=== PATIENT | male | born 1965 | race American Indian/Alaskan Native ===

== ENCOUNTER 2017-11-08 15:14 | Inpatient (IN) | payer SELFPAY ==
[2017-11-08 16:08] LABS: Hematocrit 47.2 % (35.5-45.6); Hemoglobin 15.6 gm/dl (11.8-15.2); Mean Corpuscular HGB Conc 33 % (32-34); Mean Corpuscular Hemoglobin 30 pg (28-32); Mean Corpuscular Volume 92 fl (84-94); Platelet Count 266 K/mm3 (140-440); Red Blood Count 5.15 M/mm3 (3.65-5.03); Red Cell Distribution Width 13.6 % (13.2-15.2); White Blood Count 6.8 K/mm3 (4.5-11.0)
[2017-11-08 16:14] LABS: Anion Gap 19 mmol/L; BUN/Creatinine Ratio 10; Blood Urea Nitrogen 14 mg/dL (9-20); Calcium 9.1 mg/dL (8.4-10.2); Carbon Dioxide 26 mmol/L (22-30); Chloride 99.5 mmol/L (98-107); Glucose 93 mg/dL (75-100); Potassium 4.2 mmol/L (3.6-5.0); Sodium 140 mmol/L (137-145)
[2017-11-08] MEDS ORDERED: SUBLIMAZE IV ONE (17:00)
[2017-11-08] MEDS: NITROSTAT SL PRN (17:07)
[2017-11-08 18:07] LABS: Basophils % (Manual) 0 % (0.0-1.8); Blastocytes % (Manual) 0 %
[2017-11-08 18:08] LABS: Anisocytosis 1+; Diff Status Complete; Large Platelets Few; Platelet Estimate Cons
--- NOTE | 2017-11-08 21:21 | Emergency Department Report ---
ED Chest Pain HPI - General Chief Complaint: Chest Pain Stated Complaint: CHEST PAIN Time Seen by Provider: 11/08/17 20:13 Source: patient Mode of arrival: Ambulatory Limitations: No Limitations - History of Present Illness Initial Comments: 52 yo female with a past medical history of elevated cholesterol and CAD with stent placement presents to the Hospital complains of chest pain. Patient states he typically has cp 1-2 days. Today he was having chest pain every 5 minutes. Pain is substernal, burning, squeezing, and aching in nature. Mild shortness of breath associated with symptoms. Denies nausea, vomiting, or diaphoresis. Patient has been compliance with with this medication. A Cardiac stent was placed 2.5 years ago with last cardiac catheterization. Patient reports having a stress test 1.5 years ago. Patient does not have a transmission worker. Severity scale (0 -10): 2 - Related Data Home Medications Medication Instructions Recorded Confirmed Last Taken Atenolol [Tenormin] 25 mg PO DAILY 11/08/17 11/08/17 Unknown ISOSORBIDE MONOnitrate [Imdur ER] 300 mg PO QDAY 11/08/17 11/08/17 Unknown Lovastatin [Altoprev] 20 mg PO QDAY 11/08/17 11/08/17 Unknown Nitroglycerin [Nitrostat] 0.4 mg SL Q5M PRN 11/08/17 11/08/17 Unknown Allergies Allergy/AdvReac Type Severity Reaction Status Date / Time No Known Allergies Allergy Unverified 11/08/17 15:19 Heart Score - HEART Score History: Moderately suspicious EKG: Non-specific Age: 45-65 Risk factors: > 3 risk factors or hx of atherosclerotic disease Troponin: < normal limit HEART Score: 5 ED Review of Systems ROS: Stated complaint: CHEST PAIN Other details as noted in HPI Comment: All other systems reviewed and negative Other: Constitutional: No fevers chills Eyes: No eye pain visual changes ENT: No ear pain or throat pain Neck: Denies pain Respiratory: Denies cough wheezing shortness of breath Cardiovascular: as per hpi GI: Denies abdominal pain, nausea, vomiting, diarrhea : Denies dysuria Musculoskeletal: Denies back pain Skin: Denies rash, lesions, erythema Neurologic: Denies headache, numbness, weakness Psychiatric: Denies suicidal ideation, hallucinations ED Past Medical Hx - Past Medical History Previous Medical History?: Yes Hx Heart Attack/AMI: Yes - Surgical History Hx Coronary Stent: Yes - Social History Smoking Status: Current Some Day Smoker Substance Use Type: Alcohol - Medications Home Medications: Home Medications Medication Instructions Recorded Confirmed Last Taken Type Atenolol [Tenormin] 25 mg PO DAILY 11/08/17 11/08/17 Unknown History ISOSORBIDE MONOnitrate [Imdur ER] 300 mg PO QDAY 11/08/17 11/08/17 Unknown History Lovastatin [Altoprev] 20 mg PO QDAY 11/08/17 11/08/17 Unknown History Nitroglycerin [Nitrostat] 0.4 mg SL Q5M PRN 11/08/17 11/08/17 Unknown History ED Physical Exam - General Limitations: No Limitations - Other Other exam information: General: No limitations, patient is alert in no acute distress Head exam: Atraumatic, normocephalic Eyes exam: Normal appearance, ENT: Moist mucous membrane, normal oropharynx Neck exam: Normal inspection, full range of motion, no meningismus nontender Respiratory exam: Clear to auscultation bilateral, no wheezes, rales, crackles Cardiovascular: Normal rate and rhythm, normal heart sounds, chest wall nontender Abdomen: Soft, nondistended, and nontender, with normal bowel sounds, no rebound, or guarding Extremity: Full range of motion normal inspection no deformity Back: Normal Inspection, full range of motion, no tenderness Neurologic: Alert, oriented x3, cranial nerves intact, no motor or sensory deficit Psychiatric: normal affect, normal mood Skin: Warm, dry, intact ED Course Vital Signs 11/08/17 11/08/17 11/08/17 15:19 16:22 16:30 Temperature 97.6 F Pulse Rate 50 L 68 67 Respiratory 20 18 15 Rate Blood Pressure 132/57 O2 Sat by Pulse 100 97 97 Oximetry 11/08/17 11/08/17 11/08/17 16:46 17:00 17:07 Temperature Pulse Rate 67 69 60 Respiratory 14 16 Rate Blood Pressure 115/47 O2 Sat by Pulse 96 97 Oximetry 11/08/17 11/08/17 11/08/17 17:16 17:28 17:30 Temperature Pulse Rate 54 L 52 L Respiratory 17 16 13 Rate Blood Pressure 115/47 107/56 O2 Sat by Pulse 96 97 Oximetry 1211/08/17 11/08/17 17:45 18:00 18:16 Temperature Pulse Rate 57 L 59 L 59 L Respiratory 15 12 15 Rate Blood Pressure 111/62 111/62 121/63 O2 Sat by Pulse 94 96 97 Oximetry 11/08/17 11/08/17 11/08/17 18:30 18:45 19:00 Temperature Pulse Rate Respiratory Rate Blood Pressure 154/66 169/67 169/67 O2 Sat by Pulse 97 98 98 Oximetry 11/08/17 11/08/17 11/08/17 19:16 19:30 19:46 Temperature Pulse Rate 57 L 54 L 62 Respiratory 14 13 17 Rate Blood Pressure 130/73 107/53 109/67 O2 Sat by Pulse 94 97 Oximetry 11/08/17 11/08/17 11/08/17 20:00 20:15 20:30 Temperature Pulse Rate 61 53 L Respiratory 15 13 15 Rate Blood Pressure 109/67 104/76 99/71 O2 Sat by Pulse 95 95 95 Oximetry 11/08/17 11/08/17 11/08/17 20:45 21:00 21:15 Temperature Pulse Rate 58 L 59 L 62 Respiratory 16 15 13 Rate Blood Pressure 99/71 107/46 107/46 O2 Sat by Pulse 94 93 98 Oximetry 11/08/17 11/08/17 21:31 21:45 Temperature Pulse Rate 63 64 Respiratory 12 24 Rate Blood Pressure 107/46 126/69 O2 Sat by Pulse 93 97 Oximetry - Reevaluation(s) Reevaluation #1: 11/09/17 pt stable in ed - Consultations Consultation #1: 11/09/17 00:32 ekg's reviwed by stemi seasonal tax preparer doctor, no stemi, trop neg x 4, rec stress test, not cath candiate at this time ELIAS score - Elias Score Age > 65: (0) No Aspirin use within the Past 7 Days: (0) No 3 or more CAD Risk Factors: (1) Yes 2 or more Angina events in past 24 hrs: (1) Yes Known CAD with more than 50% Stenosis: (1) Yes Elevated Cardiac Markers: (0) No ST Deviation Greater than 0.5mm: (0) No ELIAS Score: 3 ED Medical Decision Making - Lab Data Result diagrams: 11/08/17 15:32 11/08/17 15:32 Lab Results 11/08/17 11/08/17 11/08/17 Range/Units 15:32 15:32 18:24 WBC 6.8 (4.5-11.0) K/mm3 RBC 5.15 H (3.65-5.03) M/mm3 Hgb 15.6 H (11.8-15.2) gm/dl Hct 47.2 H (35.5-45.6) % MCV 92 (84-94) fl MCH 30 (28-32) pg MCHC 33 (32-34) % RDW 13.6 (13.2-15.2) % Plt Count 266 (140-440) K/mm3 [place] % (Auto) Quality Technician Fiberglass Add Manual Diff Complete Total Counted 100 Seg Neuts % (Manual) 53.0 (40.0-70.0) % Band Neutrophils % 0 % Lymphocytes % (Manual) 28.0 (13.4-35.0) % Reactive Lymphs % (Man) 0 % Monocytes % (Manual) 17.0 H (0.0-7.3) % Eosinophils % (Manual) 2.0 (0.0-4.3) % Basophils % (Manual) 0 (0.0-1.8) % Metamyelocytes % 0 % Myelocytes % 0 % Promyelocytes % 0 % Blast Cells % 0 % Nucleated RBC % Not Reportable Seg Neutrophils # Man 3.6 (1.8-7.7) K/mm3 Band Neutrophils # 0.0 K/mm3 Lymphocytes # (Manual) 1.9 (1.2-5.4) K/mm3 Abs React Lymphs (Man) 0.0 K/mm3 Monocytes # (Manual) 1.2 H (0.0-0.8) K/mm3 Eosinophils # (Manual) 0.1 (0.0-0.4) K/mm3 Basophils # (Manual) 0.0 (0.0-0.1) K/mm3 Metamyelocytes # 0.0 K/mm3 Myelocytes # 0.0 K/mm3 Promyelocytes # 0.0 K/mm3 Blast Cells # 0.0 K/mm3 WBC Morphology Not Reportable Hypersegmented Neuts Not Reportable Hyposegmented Neuts Not Reportable Hypogranular Neuts Not Reportable Smudge Cells Not Reportable Toxic Granulation Not Reportable Toxic Vacuolation Not Reportable Dohle Bodies Not Reportable Pelger-Huet Anomaly Not Reportable [place] Rods Not Reportable Platelet Estimate Cons Clumped Platelets Not Reportable Plt Clumps, EDTA Not Reportable Large Platelets Few Giant Platelets Not Reportable Platelet Satelliting Not Reportable Plt Morphology Comment Not Reportable RBC Morphology Not Reportable Dimorphic RBCs Not Reportable Polychromasia Not Reportable Hypochromasia Not Reportable Poikilocytosis Not Reportable Anisocytosis 1+ Microcytosis Not Reportable Macrocytosis Not Reportable Spherocytes Not Reportable Pappenheimer Bodies Not Reportable Sickle Cells Not Reportable Target Cells Not Reportable Tear Drop Cells Not Reportable Ovalocytes Not Reportable Helmet Cells Not Reportable [place] Bodies Not Reportable [place] Rings Not Reportable Chastity Cells Not Reportable Bite Cells Not Reportable Crenated Cell Not Reportable Elliptocytes Not Reportable Acanthocytes (Spur) Not Reportable Rouleaux Not Reportable Hemoglobin C Crystals Not Reportable Schistocytes Not Reportable Malaria parasites Not Reportable Ethan Bodies Not Reportable Hem Pathologist Commnt No Sodium 140 (137-145) mmol/L Potassium 4.2 (3.6-5.0) mmol/L Chloride 99.5 (98-107) mmol/L Carbon Dioxide 26 (22-30) mmol/L Anion Gap 19 mmol/L BUN 14 (9-20) mg/dL Creatinine 1.4 (0.8-1.5) mg/dL Estimated GFR 53 ml/min BUN/Creatinine Ratio 10 % Glucose 93 (75-100) mg/dL Calcium 9.1 (8.4-10.2) mg/dL Troponin T < 0.010 < 0.010 (0.00-0.029) ng/mL - EKG Data -: EKG Interpreted by Me (q wave ant) EKG shows normal: sinus rhythm, axis (40), QRS complexes (93), ST-T waves (no stemi) Rate: bradycardia (53) - EKG Data When compared to previous EKG there are: previous EKG unavailable 11/09/17 00:33 Repeat EKG shows some food and beverage assistant manager anterior septal Q waves and some possible mild ST segment changes in V3 V4 compared to previous - Radiology Data Radiology results: report reviewed (chest x-ray: No acute findings read by radiologist) - Medical Decision Making cardiac risk factors no previous workup on record initial trop neg x2 plan to admit for cardiac eval/workup - Differential Diagnosis mi, unstable angina, gerd, atypical cp Critical Care Time: No Critical care attestation.: If time is entered above; I have spent that time in minutes in the direct care of this critically ill patient, excluding procedure time. ED Disposition Clinical Impression: Chest pain, Hx of heart artery stent Disposition: OP ADMIT IP TO THIS HOSP Is pt being admited?: Yes Condition: Stable Time of Disposition: 21:27 (Dr Schwartz/hosp)
[2017-11-08] MEDS ORDERED: DULCOLAX PR PRN (22:29)
[2017-11-08] MEDS ORDERED: MILK OF MAGNESIA PO PRN (22:29)
[2017-11-08] MEDS ORDERED: PROVENTIL IH PRN (22:29)
[2017-11-08] MEDS ORDERED: MORPHINE IV PRN (22:29)
[2017-11-08] MEDS ORDERED: TYLENOL PO PRN (22:29)
[2017-11-08] MEDS ORDERED: ZOFRAN IV PRN (22:29)
--- NOTE | 2017-11-08 22:29 | History and Physical Report ---
History of Present Illness Date of examination: 11/08/17 History of present illness: 52-year-old man with a history of coronary artery disease, see emergency room with complaint of chest pain which has been ongoing over the last 8 months. His pain is worsening and increasing frequency so he came to the emergency room for further evaluation. Pain is in the left chest which he is unable to describe, intermittent in nature lasting 15-20 minutes, intensity 7/10, relief with nitroglycerin, radiating to the posterior shoulder. Admits to nausea vomiting, no shortness of breath, diaphoresis or palpitation. His stent was placed 2 years ago Review Of Systems: Constitutional: no weight loss Ears, eyes, nose, mouth and throat: no nasal congestion, no nasal discharge, no sinus pressure, blurry vision, diplopia Neck: No neck pain or rigidity. Cardiovascular: No palpitations Respiratory: No shortness of breath, cough Gastrointestinal: No abdominal pain, hematochezia Genitourinary : no dysuria, frequency , hematuria Musculoskeletal: no muscle ache Integumentary: no rash, no pruritis Neurological: no parathesias, focal weakness Endocrine: no cold or heat intolerance, no polyuria or polydipsia Hematologic/Lymphatic: no easy bruising, no easy bleeding, no gland swelling Allergic/Immunologic: no urticaria, no angioedema. PAST MEDICAL HISTORY:coronary artery disease, PAST SURGICAL HISTORY: None FAMILY HISTORY: Hypertension SOCIAL HISTORY: Admits to alcohol, tobacco, Denies drugs Medications and Allergies Allergies Allergy/AdvReac Type Severity Reaction Status Date / Time No Known Allergies Allergy Unverified 11/08/17 15:19 Active Meds: Active Medications Nitroglycerin (Nitrostat) 0.4 mg SL .Q5MIN PRN PRN Reason: Chest Pain Last Admin: 11/08/17 17:07 Dose: 0.4 mg Exam - Physical Exam Narrative exam: Gen. appearance: Patient lying in bed in no acute distress HEENT: Normocephalic/atraumatic, pupils equal round reactive to light, extra occular movement intact, no scleral icterus, no JVD or thyromegaly or nodule, neck is supple, mucous membrane moist, no erythema or exudate Heart: S1-S2, regular rate and rhythm Lungs: Clear to auscultation bilateral breathing comfortable Abdomen: Positive bowel sounds, nontender, nondistended, no organomegaly Extremities: No edema, cyanosis, clubbing Neuro:: Oriented 3 , cranial nerves II-12 intact, speech, motor intact Skin: No rash, nodules, warm dry - Constitutional Vitals: Temp Pulse Resp BP Pulse Ox 97.6 F 62 13 107/46 98 11/08/17 15:19 11/08/17 21:15 11/08/17 21:15 11/08/17 21:15 11/08/17 21:15 Results - Labs CBC & Chem 7: 11/08/17 15:32 11/08/17 15:32 Labs: Abnormal lab results 11/08/17 Range/Units 15:32 RBC 5.15 H (3.65-5.03) M/mm3 Hgb 15.6 H (11.8-15.2) gm/dl Hct 47.2 H (35.5-45.6) % Monocytes % (Manual) 17.0 H (0.0-7.3) % Monocytes # (Manual) 1.2 H (0.0-0.8) K/mm3 - Imaging and Cardiology EKG: image reviewed Chest x-ray: image reviewed Assessment and Plan Assessment Unstable angina coronary artery disease Plan Admit medicine Check cardiac enzymes, obtain stress test, consult cardiology Start aspirin, IV morphine, DVT prophylaxis Continue appropriate outpatient medications
--- NOTE | 2017-11-08 22:57 | XRay Report ---
FINAL REPORT PROCEDURE: XR CHEST 1V AP TECHNIQUE: Chest radiograph anteroposterior view. CPT 68910 HISTORY: cp COMPARISON: No prior studies are available for comparison. FINDINGS: Heart: Normal. Mediastinum/Vessels: Normal. Lungs/Pleural space: Normal. Bony thorax: No acute osseous abnormality. Life support devices: None. IMPRESSION: No acute cardiopulmonary abnormality.
[2017-11-08 23:47] LABS: Creatine Kinase 162 units/L (55-170)
[2017-11-09] MEDS: NITROSTAT SL PRN ×2 (00:02→14:34)
[2017-11-09 07:17] LABS: Hematocrit 45.2 % (35.5-45.6); Hemoglobin 15.1 gm/dl (11.8-15.2); Mean Corpuscular HGB Conc 34 % (32-34); Mean Corpuscular Hemoglobin 31 pg (28-32); Mean Corpuscular Volume 92 fl (84-94); Platelet Count 266 K/mm3 (140-440); Red Blood Count 4.93 M/mm3 (3.65-5.03); Red Cell Distribution Width 13.8 % (13.2-15.2); White Blood Count 6.5 K/mm3 (4.5-11.0)
[2017-11-09 07:32] LABS: Anion Gap 18 mmol/L; BUN/Creatinine Ratio 14; Blood Urea Nitrogen 13 mg/dL (9-20); Calcium 8.7 mg/dL (8.4-10.2); Carbon Dioxide 23 mmol/L (22-30); Chloride 103.5 mmol/L (98-107); Glucose 100 mg/dL (75-100); Sodium 140 mmol/L (137-145)
[2017-11-09 07:34] LABS: Creatine Kinase MB 1.7 ng/mL (0.0-4.0)
[2017-11-09 07:53] LABS: Basophils % (Manual) 0 % (0.0-1.8); Blastocytes % (Manual) 0 %; Diff Status Complete; Large Platelets Few; RBC Morphology Normal
[2017-11-09 08:03] LABS: Creatine Kinase 136 units/L (55-170)
[2017-11-09] MEDS ORDERED: LEXISCAN IV ONE ×2 (09:34→09:35)
[2017-11-09] MEDS ORDERED: LOVENOX SUB-Q SCH (10:00)
[2017-11-09] MEDS ORDERED: BABY ASPIRIN PO SCH (10:00)
--- NOTE | 2017-11-09 11:59 | Consultation ---
History of Present Illness Consult date: 11/09/17 Requesting physician: FAHAD ROMAN Consult reason: chest pain, other (CAD) History of present illness: Pt is a 52 YO male with a past medical history significant for CAD s/p [place] with PCI 2.5 years ago per pt report, HTN, tobacco use, noncompliance. He is previously unknown to our practice. He presented with c/o chest pain for the past several months. He describes his chest pain as an intermittent midsternal pressure which has been present both at rest and with activity. The pain is associated with some mild SOB. He denies palpitations, n/v, diaphoresis, dizziness or syncope. He reports that he has been taking ASA, atenolol, imdur, and lovastatin at home. He states that he does not regularly see a type bar and segment assembler. Pt underwent lexiscan MPI stress test this AM which was positive for inferior, anterior and apical ischemia with EF 57%. On evaluation, pt is resting comfortably and denies any current chest pain. Of note, review of [place] records shows that pt underwent LHC on 06/15/2017 which showed angiographically significant 2-vessel CAD with successful PCI and placement of a BIA to the mid LAD with good angiographic result, overall mildly reduced LVEF. Past History Past Medical History: CAD, hypertension Social history: smoking. denies: alcohol abuse, prescription drug abuse Medications and Allergies Allergies Allergy/AdvReac Type Severity Reaction Status Date / Time No Known Allergies Allergy Unverified 11/08/17 15:19 Home Medications Medication Instructions Recorded Confirmed Last Taken Type Atenolol [Tenormin] 25 mg PO DAILY 11/08/17 11/08/17 Unknown History ISOSORBIDE MONOnitrate [Imdur ER] 300 mg PO QDAY 11/08/17 11/08/17 Unknown History Lovastatin [Altoprev] 20 mg PO QDAY 11/08/17 11/08/17 Unknown History Nitroglycerin [Nitrostat] 0.4 mg SL Q5M PRN 11/08/17 11/08/17 Unknown History Active Meds: Active Medications Acetaminophen (Tylenol) 650 mg PO Q4H PRN PRN Reason: Pain MILD(1-3)/Fever >100.5/RICKS Albuterol (Proventil) 2.5 mg IH Q3HRT PRN PRN Reason: Shortness Of Breath Aspirin (Baby Aspirin) 81 mg PO QDAY [facility] Bisacodyl (Dulcolax) 10 mg [place] QDAY PRN PRN Reason: Constipation unrelieved by MOM Enoxaparin Sodium (Lovenox) 40 mg SUB-Q QDAY [facility] Influenza Virus Vaccine Quadrival (Fluarix Quad [id number](36 Mos+) 0.5 ml IM .ONCE ONE Stop: 11/09/17 12:01 Magnesium Hydroxide (Milk Of Magnesia) 30 ml PO Q4H PRN PRN Reason: Constipation Morphine Sulfate (Morphine) 2 mg IV Q4H PRN PRN Reason: Pain, Moderate (4-6) Last Admin: 11/09/17 01:49 Dose: 2 mg Nitroglycerin (Nitrostat) 0.4 mg SL .Q5MIN PRN PRN Reason: Chest Pain Last Admin: 11/09/17 00:02 Dose: 0.4 mg Ondansetron HCl (Zofran) 4 mg IV Q8H PRN PRN Reason: N/V unrelieved by Reglan Review of Systems Constitutional: no weight loss, no weight gain, no fever, no chills, no sweats Ears, nose, mouth and throat: no ear pain, no nose pain, no sinus pressure, no sinus pain Cardiovascular: chest pain, shortness of breath, dyspnea on exertion, no orthopnea, no palpitations, no rapid/irregular heart beat, no edema, no syncope , no lightheadedness, no leg edema Respiratory: shortness of breath, dyspnea on exertion, no cough, no congestion, no wheezing, no pain on inspiration Gastrointestinal: no abdominal pain, no nausea, no vomiting, no diarrhea, no constipation, no change in bowel habits Genitourinary Male: no dysuria, no hematuria, no flank pain, no discharge, no urinary frequency, no urinary hesitancy Musculoskeletal: no neck stiffness, no neck pain Integumentary: no rash, no pruritis, no redness, no sores, no wounds Neurological: no head injury, no paralysis, no weakness, no parathesias, no numbness, no tingling, no seizures, no syncope Psychiatric: no anxiety Endocrine: no cold intolerance, no heat intolerance Hematologic/Lymphatic: no easy bruising, no easy bleeding, no lymphadenopathy Allergic/Immunologic: no urticaria, no wheezing, no persistent infections Physical Examination Vital Signs Temp Pulse Resp BP Pulse Ox 97.6 F 50 L 20 132/57 100 11/08/17 15:19 11/08/17 15:19 11/08/17 15:19 11/08/17 15:19 11/08/17 15:19 General appearance: no acute distress HEENT: Positive: PERRL, Normocephaly, Mucus Membranes Moist Neck: Positive: neck supple, trachea midline Cardiac: Positive: Reg Rate and Rhythm, S1/S2 Lungs: Positive: clear to auscultation Neuro: Positive: Grossly Intact, Cranial Nerve 2-12 Intact Abdomen: Positive: Soft. Negative: Tender Skin: Positive: Clear. Negative: Rash, Wound Musculoskeletal: No Fluid Collection, No Pain, Normal Range of Motion Extremities: Absent: edema Results 11/09/17 06:41 11/09/17 06:41 Cardiac Enzymes 11/08/17 11/09/17 Range/Units 23:14 06:41 CK-MB (CK-2) 2.0 1.7 (0.0-4.0) ng/mL CBC 11/08/17 11/09/17 Range/Units 15:32 06:41 WBC 6.8 6.5 (4.5-11.0) K/mm3 RBC 5.15 H 4.93 (3.65-5.03) M/mm3 Hgb 15.6 H 15.1 (11.8-15.2) gm/dl Hct 47.2 H 45.2 (35.5-45.6) % Plt Count 266 266 (140-440) K/mm3 Comprehensive Metabolic Panel 11/08/17 11/09/17 Range/Units 15:32 06:41 Sodium 140 140 (137-145) mmol/L Potassium 4.2 4.0 (3.6-5.0) mmol/L Chloride 99.5 103.5 (98-107) mmol/L Carbon Dioxide 26 23 (22-30) mmol/L BUN 14 13 (9-20) mg/dL Creatinine 1.4 0.9 (0.8-1.5) mg/dL Glucose 93 100 (75-100) mg/dL Calcium 9.1 8.7 (8.4-10.2) mg/dL - Imaging and Cardiology Echo: pending Cardiac cath: report reviewed ([facility] [place] on 06/15/2017 which showed angiographically significant 2-vessel CAD with successful PCI and placement of a BIA to the mid LAD with good angiographic result, overall mildly reduced LVEF. ) EKG: report reviewed, image reviewed EKG interpretations - Telemetry EKG Rhythm: Sinus Rhythm - EKG Sinus rhythms and dysrhythmias: sinus rhythm Myocardial infarction: anterior [place] (old age or i Assessment and Plan Assessment: Unstable angina - EKG with NAF; Nuzhat negative for AMI Abnormal stress test CAD s/p PCI - [facility] [place] on 06/15/2017 showed angiographically significant 2-vessel CAD with successful PCI and placement of a BIA to the mid LAD with good angiographic result, overall mildly reduced LVEF. HTN Tobacco use Noncompliance Plan: S/p lexiscan MPI stress test this AM which was positive for inferior, anterior and apical ischemia with EF 57%. Coronary angiography recommended for definitive diagnosis. Indications, potential risks and benefits of C reviewed with pt and he is agreeable to proceed in AM. NPO after MN. Initiate heparin gtt with initial bolus and d/c tomorrow ~6AM prior to cardiac cath. Increase ASA to 325mg daily. Resume home atenolol and Imdur. Initiate lipitor. Obtain fasting lipid panel in AM. Assessment and plan reviewed with pt at bedside. The patient has been seen in conjunction with Dr. Fajardo who agrees with the assessment and plan of care.
[2017-11-09] MEDS ORDERED: Fluarix Quad 2017-2018(36 MOS+ IM ONE (12:00)
[2017-11-09] MEDS ORDERED: HEPARIN 10,000 UNITS/10 ML IV ONE (13:00)
[2017-11-09] MEDS ORDERED: HEPARIN/ 0.45% NACL-25,000 UNIT/500 ML 25,000 UNIT/500 ML BAG IV SCH (13:00)
[2017-11-09] MEDS ORDERED: NACL 0.9% 500 ML 500 ML IV SCH (13:00)
[2017-11-09] MEDS: IMDUR PO SCH (13:19)
[2017-11-09] MEDS: TENORMIN PO SCH (13:19)
[2017-11-09 14:19] LABS: Hematocrit 47.3 % (35.5-45.6); Hemoglobin 15.5 gm/dl (11.8-15.2)
[2017-11-09 15:10] LABS: INR 1.05 (0.87-1.13)
[2017-11-09 15:11] LABS: Partial Thromboplastin Time 33.8 Sec. (24.2-36.6)
--- NOTE | 2017-11-09 16:30 | Progress Note ---
<MUNA MCCLELLAND - Last Filed: 11/09/17 16:30> Assessment and Plan Assessment and plan: 52-year-old man with a history of coronary artery disease, see emergency room with complaint of chest pain which has been ongoing over the last 8 months. His pain is worsening and increasing frequency so he came to the emergency room for further evaluation. Pain is in the left chest which he is unable to describe, intermittent in nature lasting 15-20 minutes, intensity 7/10, relief with nitroglycerin, radiating to the posterior shoulder. Admits to nausea vomiting, no shortness of breath, diaphoresis or palpitation. His stent was placed 2 years ago Unstable angina EKG with NAF; Nuzhat negative for AMI Coronary angiography AM coronary artery disease s/p PCI - [facility] on 06/15/2017 S/p lexiscan MPI stress test this AM which was positive for inferior, anterior and apical ischemia with EF 57%. Coronary angiography recommended for definitive diagnosis, scheduled for AM Cardiology following Hyperlipidemia Fasting lipid panel in am Continue statins HTN Controlled with Atenolol, continue DVT prophylaxis Heparin Hospitalist Physical - Constitutional Vitals: Temp Pulse Resp BP Pulse Ox 97.8 F 50 L 18 118/65 94 11/09/17 04:36 11/09/17 14:34 11/09/17 10:00 11/09/17 13:19 11/09/17 04:36 General appearance: Present: no acute distress Results - Labs CBC & Chem 7: 11/09/17 Unknown 11/09/17 06:41 Labs: Laboratory Last Values WBC 6.5 K/mm3 (4.5-11.0) 11/09/17 06:41 RBC 4.93 M/mm3 (3.65-5.03) 11/09/17 06:41 Hgb 15.5 gm/dl (11.8-15.2) H 11/09/17 Unknown Hct 47.3 % (35.5-45.6) H 11/09/17 Unknown MCV 92 fl (84-94) 11/09/17 06:41 MCH 31 pg (28-32) 11/09/17 06:41 MCHC 34 % (32-34) 11/09/17 06:41 RDW 13.8 % (13.2-15.2) 11/09/17 06:41 Plt Count 277 K/mm3 (140-440) 11/09/17 Unknown Harmon % (Auto) Operations General Agent 11/09/17 06:41 Add Manual Diff Complete 11/09/17 06:41 Total Counted 100 11/09/17 06:41 Seg Neuts % (Manual) 44.0 % (40.0-70.0) 11/09/17 06:41 Band Neutrophils % 0 % 11/09/17 06:41 Lymphocytes % (Manual) 43.0 % (13.4-35.0) H 11/09/17 06:41 Reactive Lymphs % (Man) 0 % 11/09/17 06:41 Monocytes % (Manual) 11.0 % (0.0-7.3) H 11/09/17 06:41 Eosinophils % (Manual) 2.0 % (0.0-4.3) 11/09/17 06:41 Basophils % (Manual) 0 % (0.0-1.8) 11/09/17 06:41 Metamyelocytes % 0 % 11/09/17 06:41 Myelocytes % 0 % 11/09/17 06:41 Promyelocytes % 0 % 11/09/17 06:41 Blast Cells % 0 % 11/09/17 06:41 Nucleated RBC % Not Reportable 11/09/17 06:41 Seg Neutrophils # Man 2.9 K/mm3 (1.8-7.7) 11/09/17 06:41 Band Neutrophils # 0.0 K/mm3 11/09/17 06:41 Lymphocytes # (Manual) 2.8 K/mm3 (1.2-5.4) 11/09/17 06:41 Abs React Lymphs (Man) 0.0 K/mm3 11/09/17 06:41 Monocytes # (Manual) 0.7 K/mm3 (0.0-0.8) 11/09/17 06:41 Eosinophils # (Manual) 0.1 K/mm3 (0.0-0.4) 11/09/17 06:41 Basophils # (Manual) 0.0 K/mm3 (0.0-0.1) 11/09/17 06:41 Metamyelocytes # 0.0 K/mm3 11/09/17 06:41 Myelocytes # 0.0 K/mm3 11/09/17 06:41 Promyelocytes # 0.0 K/mm3 11/09/17 06:41 Blast Cells # 0.0 K/mm3 11/09/17 06:41 WBC Morphology Not Reportable 11/09/17 06:41 Hypersegmented Neuts Not Reportable 11/09/17 06:41 Hyposegmented Neuts Not Reportable 11/09/17 06:41 Hypogranular Neuts Not Reportable 11/09/17 06:41 Smudge Cells Not Reportable 11/09/17 06:41 Toxic Granulation Not Reportable 11/09/17 06:41 Toxic Vacuolation Not Reportable 11/09/17 06:41 Dohle Bodies Not Reportable 11/09/17 06:41 Pelger-Huet Anomaly Not Reportable 11/09/17 06:41 [place] Rods Not Reportable 11/09/17 06:41 Platelet Estimate Appears normal 11/09/17 06:41 Clumped Platelets Not Reportable 11/09/17 06:41 Plt Clumps, EDTA Not Reportable 11/09/17 06:41 Large Platelets Few 11/09/17 06:41 Giant Platelets Not Reportable 11/09/17 06:41 Platelet Satelliting Not Reportable 11/09/17 06:41 Plt Morphology Comment Not Reportable 11/09/17 06:41 RBC Morphology Normal 11/09/17 06:41 Dimorphic RBCs Not Reportable 11/09/17 06:41 Polychromasia Not Reportable 11/09/17 06:41 Hypochromasia Not Reportable 11/09/17 06:41 Poikilocytosis Not Reportable 11/09/17 06:41 Anisocytosis Not Reportable 11/09/17 06:41 Microcytosis Not Reportable 11/09/17 06:41 Macrocytosis Not Reportable 11/09/17 06:41 Spherocytes Not Reportable 11/09/17 06:41 Pappenheimer Bodies Not Reportable 11/09/17 06:41 Sickle Cells Not Reportable 11/09/17 06:41 Target Cells Not Reportable 11/09/17 06:41 Tear Drop Cells Not Reportable 11/09/17 06:41 Ovalocytes Not Reportable 11/09/17 06:41 Helmet Cells Not Reportable 11/09/17 06:41 [place] Bodies Not Reportable 11/09/17 06:41 [place] Rings Not Reportable 11/09/17 06:41 Chastity Cells Not Reportable 11/09/17 06:41 Bite Cells Not Reportable 11/09/17 06:41 Crenated Cell Not Reportable 11/09/17 06:41 Elliptocytes Not Reportable 11/09/17 06:41 Acanthocytes (Spur) Not Reportable 11/09/17 06:41 Rouleaux Not Reportable 11/09/17 06:41 Hemoglobin C Crystals Not Reportable 11/09/17 06:41 Schistocytes Not Reportable 11/09/17 06:41 Malaria parasites Not Reportable 11/09/17 06:41 Ethan Bodies Not Reportable 11/09/17 06:41 Hem Pathologist Commnt No 11/09/17 06:41 PT 14.2 Sec. (12.2-14.9) 11/09/17 Unknown INR 1.05 (0.87-1.13) 11/09/17 Unknown APTT 33.8 Sec. (24.2-36.6) 11/09/17 Unknown Sodium 140 mmol/L (137-145) 11/09/17 06:41 Potassium 4.0 mmol/L (3.6-5.0) 11/09/17 06:41 Chloride 103.5 mmol/L (98-107) 11/09/17 06:41 Carbon Dioxide 23 mmol/L (22-30) 11/09/17 06:41 Anion Gap 18 mmol/L 11/09/17 06:41 BUN 13 mg/dL (9-20) 11/09/17 06:41 Creatinine 0.9 mg/dL (0.8-1.5) 11/09/17 06:41 Estimated GFR > 60 ml/min 11/09/17 06:41 BUN/Creatinine Ratio 14 % 11/09/17 06:41 Glucose 100 mg/dL (75-100) 11/09/17 06:41 Calcium 8.7 mg/dL (8.4-10.2) 11/09/17 06:41 Total Creatine Kinase 136 units/L (55-170) 11/09/17 06:41 CK-MB (CK-2) 1.7 ng/mL (0.0-4.0) 11/09/17 06:41 CK-MB (CK-2) Rel Index 1.2 (0-4) 11/09/17 06:41 Troponin T < 0.010 ng/mL (0.00-0.029) 11/09/17 06:41 <FAHAD ROMAN M - Last Filed: 11/09/17 17:50> Assessment and Plan Assessment and plan: I saw and evaluated the patient. I agree with the findings and the plan of care as documented in the PA's note. History Interval history: Patient was seen and evaluated this morning, patient denies chest pain. No family member was in the room. Patient was alert and oriented and management plan was discussed with the patient. Hospitalist Physical - Physical exam Narrative exam: Not in cardiopulmonary distress. The patient appeared well nourished and normally developed. Vital signs as documented. Head exam is unremarkable. No scleral icterus . Neck is without jugular venous distension, thyromegaly, or carotid bruits. Lungs are clear to auscultation. Cardiac exam reveals regular rate and Rhythm. First and second heart sounds normal. No murmurs, rubs or gallops. Abdominal exam reveals normal bowel sounds, no masses, no organomegaly and no aortic enlargement. Extremities are nonedematous and both femoral and pedal pulses are normal. RABBLE FURNACE TENDER: Alert and oriented 3. No focal weakness. - Constitutional Vitals: Temp Pulse Resp BP Pulse Ox 97.8 F 50 L 18 118/65 94 11/09/17 04:36 11/09/17 14:34 11/09/17 10:00 11/09/17 13:19 11/09/17 04:36 Results - Labs CBC & Chem 7: 11/09/17 Unknown 11/09/17 06:41 Labs: Laboratory Last Values WBC 6.5 K/mm3 (4.5-11.0) 11/09/17 06:41 RBC 4.93 M/mm3 (3.65-5.03) 11/09/17 06:41 Hgb 15.5 gm/dl (11.8-15.2) H 11/09/17 Unknown Hct 47.3 % (35.5-45.6) H 11/09/17 Unknown MCV 92 fl (84-94) 11/09/17 06:41 MCH 31 pg (28-32) 11/09/17 06:41 MCHC 34 % (32-34) 11/09/17 06:41 RDW 13.8 % (13.2-15.2) 11/09/17 06:41 Plt Count 277 K/mm3 (140-440) 11/09/17 Unknown Harmon % (Auto) Operations General Agent 11/09/17 06:41 Add Manual Diff Complete 11/09/17 06:41 Total Counted 100 11/09/17 06:41 Seg Neuts % (Manual) 44.0 % (40.0-70.0) 11/09/17 06:41 Band Neutrophils % 0 % 11/09/17 06:41 Lymphocytes % (Manual) 43.0 % (13.4-35.0) H 11/09/17 06:41 Reactive Lymphs % (Man) 0 % 11/09/17 06:41 Monocytes % (Manual) 11.0 % (0.0-7.3) H 11/09/17 06:41 Eosinophils % (Manual) 2.0 % (0.0-4.3) 11/09/17 06:41 Basophils % (Manual) 0 % (0.0-1.8) 11/09/17 06:41 Metamyelocytes % 0 % 11/09/17 06:41 Myelocytes % 0 % 11/09/17 06:41 Promyelocytes % 0 % 11/09/17 06:41 Blast Cells % 0 % 11/09/17 06:41 Nucleated RBC % Not Reportable 11/09/17 06:41 Seg Neutrophils # Man 2.9 K/mm3 (1.8-7.7) 11/09/17 06:41 Band Neutrophils # 0.0 K/mm3 11/09/17 06:41 Lymphocytes # (Manual) 2.8 K/mm3 (1.2-5.4) 11/09/17 06:41 Abs React Lymphs (Man) 0.0 K/mm3 11/09/17 06:41 Monocytes # (Manual) 0.7 K/mm3 (0.0-0.8) 11/09/17 06:41 Eosinophils # (Manual) 0.1 K/mm3 (0.0-0.4) 11/09/17 06:41 Basophils # (Manual) 0.0 K/mm3 (0.0-0.1) 11/09/17 06:41 Metamyelocytes # 0.0 K/mm3 11/09/17 06:41 Myelocytes # 0.0 K/mm3 11/09/17 06:41 Promyelocytes # 0.0 K/mm3 11/09/17 06:41 Blast Cells # 0.0 K/mm3 11/09/17 06:41 WBC Morphology Not Reportable 11/09/17 06:41 Hypersegmented Neuts Not Reportable 11/09/17 06:41 Hyposegmented Neuts Not Reportable 11/09/17 06:41 Hypogranular Neuts Not Reportable 11/09/17 06:41 Smudge Cells Not Reportable 11/09/17 06:41 Toxic Granulation Not Reportable 11/09/17 06:41 Toxic Vacuolation Not Reportable 11/09/17 06:41 Dohle Bodies Not Reportable 11/09/17 06:41 Pelger-Huet Anomaly Not Reportable 11/09/17 06:41 [place] Rods Not Reportable 11/09/17 06:41 Platelet Estimate Appears normal 11/09/17 06:41 Clumped Platelets Not Reportable 11/09/17 06:41 Plt Clumps, EDTA Not Reportable 11/09/17 06:41 Large Platelets Few 11/09/17 06:41 Giant Platelets Not Reportable 11/09/17 06:41 Platelet Satelliting Not Reportable 11/09/17 06:41 Plt Morphology Comment Not Reportable 11/09/17 06:41 RBC Morphology Normal 11/09/17 06:41 Dimorphic RBCs Not Reportable 11/09/17 06:41 Polychromasia Not Reportable 11/09/17 06:41 Hypochromasia Not Reportable 11/09/17 06:41 Poikilocytosis Not Reportable 11/09/17 06:41 Anisocytosis Not Reportable 11/09/17 06:41 Microcytosis Not Reportable 11/09/17 06:41 Macrocytosis Not Reportable 11/09/17 06:41 Spherocytes Not Reportable 11/09/17 06:41 Pappenheimer Bodies Not Reportable 11/09/17 06:41 Sickle Cells Not Reportable 11/09/17 06:41 Target Cells Not Reportable 11/09/17 06:41 Tear Drop Cells Not Reportable 11/09/17 06:41 Ovalocytes Not Reportable 11/09/17 06:41 Helmet Cells Not Reportable 11/09/17 06:41 [place] Bodies Not Reportable 11/09/17 06:41 [place] Rings Not Reportable 11/09/17 06:41 [place] Cells Not Reportable 11/09/17 06:41 Bite Cells Not Reportable 11/09/17 06:41 Crenated Cell Not Reportable 11/09/17 06:41 Elliptocytes Not Reportable 11/09/17 06:41 Acanthocytes (Spur) Not Reportable 11/09/17 06:41 Rouleaux Not Reportable 11/09/17 06:41 Hemoglobin C Crystals Not Reportable 11/09/17 06:41 Schistocytes Not Reportable 11/09/17 06:41 Malaria parasites Not Reportable 11/09/17 06:41 Ethan Bodies Not Reportable 11/09/17 06:41 Hem Pathologist Commnt No 11/09/17 06:41 PT 14.2 Sec. (12.2-14.9) 11/09/17 Unknown INR 1.05 (0.87-1.13) 11/09/17 Unknown APTT 33.8 Sec. (24.2-36.6) 11/09/17 Unknown Sodium 140 mmol/L (137-145) 11/09/17 06:41 Potassium 4.0 mmol/L (3.6-5.0) 11/09/17 06:41 Chloride 103.5 mmol/L (98-107) 11/09/17 06:41 Carbon Dioxide 23 mmol/L (22-30) 11/09/17 06:41 Anion Gap 18 mmol/L 11/09/17 06:41 BUN 13 mg/dL (9-20) 11/09/17 06:41 Creatinine 0.9 mg/dL (0.8-1.5) 11/09/17 06:41 Estimated GFR > 60 ml/min 11/09/17 06:41 BUN/Creatinine Ratio 14 % 11/09/17 06:41 Glucose 100 mg/dL (75-100) 11/09/17 06:41 Calcium 8.7 mg/dL (8.4-10.2) 11/09/17 06:41 Total Creatine Kinase 136 units/L (55-170) 11/09/17 06:41 CK-MB (CK-2) 1.7 ng/mL (0.0-4.0) 11/09/17 06:41 CK-MB (CK-2) Rel Index 1.2 (0-4) 11/09/17 06:41 Troponin T < 0.010 ng/mL (0.00-0.029) 11/09/17 06:41
[2017-11-10 05:50] LABS: Basophils % (Auto) 0.5 % (0.0-1.8); Eosinophils % (Auto) 2.6 % (0.0-4.3); Hemoglobin 14.5 gm/dl (11.8-15.2); Mean Corpuscular HGB Conc 34 % (32-34); Mean Corpuscular Hemoglobin 31 pg (28-32); Mean Corpuscular Volume 92 fl (84-94); Platelet Count 270 K/mm3 (140-440); Red Blood Count 4.69 M/mm3 (3.65-5.03); Red Cell Distribution Width 13.7 % (13.2-15.2); White Blood Count 6.5 K/mm3 (4.5-11.0)
[2017-11-10 05:59] LABS: INR 1.06 (0.87-1.13)
[2017-11-10 06:09] LABS: Anion Gap 17 mmol/L; BUN/Creatinine Ratio 12; Blood Urea Nitrogen 11 mg/dL (9-20); Calcium 8.4 mg/dL (8.4-10.2); Carbon Dioxide 23 mmol/L (22-30); Chloride 105.1 mmol/L (98-107); Glucose 109 mg/dL (75-100); Potassium 4.2 mmol/L (3.6-5.0); Sodium 141 mmol/L (137-145)
[2017-11-10] MEDS ORDERED: ECOTRIN PO ONE (07:31)
[2017-11-10] MEDS ORDERED: NACL 0.9% 500 ML 500 ML IV SCH (08:00)
[2017-11-10] MEDS ORDERED: HEPARIN/NS 5000 UNIT/500ML(CATH LAB) 1,000 ML IR ONE (08:07)
[2017-11-10] MEDS ORDERED: XYLOCAINE 2% INFILTRATI ONE (08:08)
[2017-11-10] MEDS ORDERED: NITROGLYCERIN SYRINGE 3 ML ONE (08:08)
[2017-11-10] MEDS ORDERED: CALAN ONE (08:08)
[2017-11-10 08:54] LABS: Cholesterol 178 mg/dL (50-199); HDL Cholesterol 55 mg/dL (40-59); LDL Cholesterol,Direct 102 mg/dL (50-130); Triglycerides 108 mg/dL (2-149)
[2017-11-10] MEDS: VERSED ONE ×2 (09:00→09:28)
[2017-11-10] MEDS: SUBLIMAZE ONE ×2 (09:00→09:28)
[2017-11-10] MEDS: HEPARIN 10,000 UNITS/10 ML ONE ×2 (09:08→09:21)
[2017-11-10] MEDS ORDERED: ULTRAM PO PRN (10:00)
[2017-11-10] MEDS ORDERED: ASPIRIN PO SCH (10:00)
[2017-11-10] MEDS ORDERED: NACL 0.9% 1000 ML 1,000 ML IV SCH (10:00)
[2017-11-10] MEDS ORDERED: PLAVIX PO SCH (10:00)
--- NOTE | 2017-11-10 10:00 | Progress Note ---
Assessment and Plan Unstable angina - EKG with NAF; Nuzhat negative for AMI Abnormal stress test CAD s/p PCI - [facility] on 06/15/2017 showed angiographically significant 2-vessel CAD with successful PCI and placement of a BIA to the mid LAD with good angiographic result, overall mildly reduced LVEF. HTN Tobacco use Noncompliance Patient underwent coronary angiopraphy which showed mild apical hypokinesis ,EF lower limits of nrmal,45-50% wtih stents noted in proximal/mid LAD,distal part of these stents showed moderate 50% stenosis extending to [place]-sp[place] vessel,FFR of this lesion was performed with lowest value being 0.83,mostly in around 0.89.This represents lesion to be not significant for intervention,circ showed mild disease,RCA showing moderate proximal and distal disease. Considering aboe angiographic picture and patient being not very compliant with meds,it was decided to continue medical therapy. Will continue ASA 81 mg.qday,Plavix 75 mg qday,Atenolol 25 mg qday and Imdur 30 mg qday.Patient was taking Lovastatin at home,continue same. Patient may be discharged home and f/u as OP. Subjective Date of service: 11/10/17 Interval history: Patient underwent left heart cath and cornary angiography for abnormal iv nuclear imaging. Objective Vital Signs Temp Pulse Resp BP BP Pulse Ox 11/10/17 09:58 94 11/10/17 07:30 98.1 F 47 L 19 107/55 11/10/17 07:00 47 L 11/10/17 04:38 98.2 F 55 L 18 93/45 94 11/09/17 23:51 98.2 F 52 L 18 94/51 95 11/09/17 19:35 98.8 F 50 L 20 97/63 96 11/09/17 16:37 98.0 F 52 L 16 110/62 97 11/09/17 14:34 50 L 11/09/17 13:19 118/65 11/09/17 13:04 97.8 F 51 L 14 113/72 96 11/09/17 10:01 61 118/65 11/09/17 10:00 69 18 114/70 98 - Physical Examination HEENT: Positive: PERRL, Normocephaly, Mucus Membranes Moist Neck: Positive: neck supple, trachea midline Lungs: Positive: clear to auscultation Neuro: Positive: Grossly Intact, Cranial Nerve 2-12 Intact Abdomen: Positive: Soft. Negative: Tender Skin: Positive: Clear. Negative: Rash, Wound Musculoskeletal: No Fluid Collection, No Pain, Normal Range of Motion Extremities: Absent: edema - Labs and Meds Coagulation 11/09/17 11/10/17 Range/Units Unknown 05:35 PT 14.2 14.4 (12.2-14.9) Sec. INR 1.05 1.06 (0.87-1.13) APTT 33.8 (24.2-36.6) Sec. Lipids 11/10/17 Range/Units 05:35 Triglycerides 108 (2-149) mg/dL Cholesterol 178 (50-199) mg/dL HDL Cholesterol 55 (40-59) mg/dL Cholesterol/HDL Ratio 3.23 % CBC 11/09/17 11/10/17 Range/Units Unknown 05:35 WBC 6.5 (4.5-11.0) K/mm3 RBC 4.69 (3.65-5.03) M/mm3 Hgb 15.5 H 14.5 (11.8-15.2) gm/dl Hct 47.3 H 43.0 (35.5-45.6) % Plt Count 277 270 (140-440) K/mm3 Lymph # 2.2 (1.2-5.4) K/mm3 Hughes # 0.9 H (0.0-0.8) K/mm3 Eos # 0.2 (0.0-0.4) K/mm3 Baso # 0.0 (0.0-0.1) K/mm3 Comprehensive Metabolic Panel 11/10/17 Range/Units 05:35 Sodium 141 (137-145) mmol/L Potassium 4.2 (3.6-5.0) mmol/L Chloride 105.1 (98-107) mmol/L Carbon Dioxide 23 (22-30) mmol/L BUN 11 (9-20) mg/dL Creatinine 0.9 (0.8-1.5) mg/dL Glucose 109 H (75-100) mg/dL Calcium 8.4 (8.4-10.2) mg/dL - Imaging and Cardiology EKG: report reviewed, image reviewed Echo: pending Cardiac cath: report reviewed ([facility] on 06/15/2017 which showed angiographically significant 2-vessel CAD with successful PCI and placement of a BIA to the mid LAD with good angiographic result, overall mildly reduced LVEF. ) - EKG Sinus rhythms and dysrhythmias: sinus rhythm Myocardial infarction: anterior CA (old age or i
--- NOTE | 2017-11-10 10:44 | Discharge Summary ---
Providers - Providers Date of Admission: 11/08/17 22:29 Date of discharge: 11/10/17 Attending physician: FAHAD ROMAN MD 11/09/17 08:58 Consult to Physician [CONS] Routine Consulting Provider: LADI GRAVES Reason For Exam: chest pain, CAD Place consult to:: Dr. Graves Notified:: Amada VIGIL Was contact made?: Yes If yes, spoke with:: Loulou José Time called:: 09:45 11/10/17 09:56 Consult to Cardiac Rehabilitation [CONS] Routine Reason For Exam: Cardiac Rehab Evaluation Primary care physician: OVEN LABORER Hospitalization Condition: Stable Pertinent studies: Chest x-ray revealed no acute cardiopulmonary abnormalities. Patient underwent coronary angiopraphy which showed mild apical hypokinesis ,EF lower limits of nrmal,45-50% wtih stents noted in proximal/mid LAD,distal part of these stents showed moderate 50% stenosis extending to [place] vessel Procedures: Cardiac catheterization Hospital course: 52-year-old man with a history of coronary artery disease, see emergency room with complaint of chest pain which has been ongoing over the last 8 months. His pain is worsening and increasing frequency so he came to the emergency room for further evaluation. Pain is in the left chest which he is unable to describe, intermittent in nature lasting 15-20 minutes, intensity 7/10, relief with nitroglycerin, radiating to the posterior shoulder. Admits to nausea vomiting, no shortness of breath, diaphoresis or palpitation. His stent was placed 2 years ago Patient was treated for unstable angina and underwent studies to assess his coronary artery disease. Patient was treated with aspirin and nitroglycerin and morphine after which she was stabilized. Patient was advised to follow-up with child and adolescent psychologist as outpatient and encouraged to take his Plavix as prescribed. Discharge diagnoses Unstable angina Coronary artery disease Hyperlipidemia Hypertension DVT prophylaxis Disposition: - TO HOME OR SELFCARE Time spent for discharge: 35 mins Core Measure Documentation - Palliative Care Palliative Care/ Comfort Measures: Not Applicable - Core Measures Any of the following diagnoses?: none Exam - Constitutional Vitals: Temp Pulse Resp BP Pulse Ox 98.1 F 47 L 19 107/55 94 11/10/17 07:30 11/10/17 07:30 11/10/17 07:30 11/10/17 07:30 11/10/17 09:58 General appearance: Present: no acute distress, well-nourished - EENT Eyes: Present: PERRL ENT: hearing intact, clear oral mucosa - Neck Neck: Present: supple, normal ROM - Respiratory Respiratory effort: normal Respiratory: bilateral: CTA - Cardiovascular Heart Sounds: Present: S1 & S2. Absent: rub, click - Extremities Extremities: pulses symmetrical, No edema Peripheral Pulses: within normal limits - Abdominal General gastrointestinal: Present: soft, non-tender, non-distended, normal bowel sounds Male genitourinary: Present: deferred - Rectal Rectal Exam: deferred - Integumentary Integumentary: Present: clear, warm, dry - Musculoskeletal Musculoskeletal: gait normal, strength equal bilaterally - Psychiatric Psychiatric: appropriate mood/affect, intact judgment & insight - Neurologic Neurologic: CNII-XII intact, moves all extremities - Allied Health Allied health notes reviewed: nursing Plan Activity: fall precautions Weight Bearing Status: Weight Bear as Tolerated Diet: low fat, low cholesterol, low salt Follow up with: PRIMARY MD BETO [Primary Care Provider] - 7 Days [facility] [Provider Group] - 7 Days REJI AMES MD [Staff Physician] - 7 Days Forms: CardCat PCI D/C Instructions Prescriptions: Aspirin [Aspirin TAB] 81 mg PO QDAY #30 tablet Atenolol [Tenormin] 25 mg PO DAILY #30 tablet Clopidogrel [Plavix] 75 mg PO QDAY #30 tablet ISOSORBIDE MONOnitrate [Imdur ER] 30 mg PO QDAY #30 tablet Lovastatin [Altoprev] 40 mg PO QDAY #30 tab.er.24h
[2017-11-10 13:03] VITALS: BP 94/62
--- NOTE | 2017-11-10 14:34 | Cardiac Catherization Report ---
CARDIAC CATHETERIZATION REPORT AND CORONARY INTERVENTION REPORT CLINICAL INFORMATION: The patient is a 52-year-old gentleman who has history of myocardial infarction with PCI 2-1/2 years ago, according to the patient, with history of hypertension, tobacco abuse, non-compliance. On reviewing the records from the other hospital, the patient underwent left heart catheterization on 06/10/2017 which showed angiographically significant 2-vessel disease with successful PCI and placement of BIA to the mid LAD with good angiographic result. Overall, mildly reduced left ventricular ejection fraction was noted at that time. The patient presented with intermittent chest pain of many months' duration, both at rest and with activities and had mild shortness of breath. His cardiac enzymes have been normal. However, he was noted to have significant abnormality on the IV Lexiscan. Nuclear imaging with reversible defects in the anterior apical and inferior areas, hence the patient is being scheduled for cardiac catheterization for definitive diagnosis and treatment. The patient's ____ done and he is aware of the procedure, potential complications, and the alternatives of therapy available. DESCRIPTION OF PROCEDURE: The patient was brought to the catheterization laboratory in a fasting condition. The right wrist area and forearm thoroughly cleansed with Betadine solution and sterile drapes were applied. Local anesthesia was given in the right wrist area. Right radial arterial puncture was made using 21-gauge arterial puncture needle. Subsequently, 5-[place] slender sheath was introduced. The patient received 5 mg of intra-arterial verapamil and 3000 units of intravenous heparin. Subsequently, using 5-[place] multipurpose catheter, angiograms of the right and left ventricle were obtained in WILL and [place] projection using hand injection followed by angiograms of the right coronary artery and left coronary artery in multiple views. At the end of the procedure, it was decided to proceed with measurement of the FFR of the LAD. Following findings were noted on angiography. HEMODYNAMICS: 1. Included aortic pressure of 113/77, left ventricular pressure 106/20, no gradient across the aortic valve. The estimated ejection fraction was 45-50%. 2. Left ventriculogram done in WILL and [place] projection showed normal sized left ventricle with very mild hypokinesis of the apex, ejection fraction lower limits of normal in the range of 45-50%. Mitral regurgitation could not be evaluated because of limited amount of dye injected. 3. Right coronary artery dominant vessel shows diffuse disease with 40% focal proximal lesion and 50% concentric distal lesion and also 40% eccentric distal lesion, PDA large branch without significant disease. 4. Left coronary artery, left main is very short, immediately dividing into LAD. LAD shows patent stents in the proximal and mid LAD with 50% in-stent restenosis in the very distal part of the stents. Also, this lesion is extending into the modoc vessel. Distal LAD is without significant disease. Circumflex artery shows only mild irregularities in the marginal branches. 5. Collaterals none. FINAL IMPRESSION: Patent stents in the proximal and mid left anterior descending coronary artery with a distal instent restenosis which was found to be moderate. Plan is to proceed with measurement of FFR of this lesion. Otherwise, rest of the arteries namely circumflex artery and right coronary artery showed only [id number] disease. Collaterals none. INTERVENTIONAL PROCEDURE NAMELY MEASUREMENT OF FRACTION FLOW RESERVE OF THE LAD: The patient was given extra dose of 5000 units of heparin. Diagnostic catheterization was exchanged with 6-[place] EBU 3.5 guiding catheter. We engaged the left coronary artery. [employer] pressure wire was set up in a standard fashion and was advanced distal to the lesion. Using IV adenosine, fractional flow reserve measurement was performed. Lowest value was 0.83 but during most of the procedure including at the end of the 2 minutes, FFR was found to be 0.89. This does not appear to be significant for intervention. Final angiogram showed no evidence of any complications from passing the pressure wire. Guidewire and guiding catheter were removed and good hemostasis was achieved with pressure bandage. FINAL IMPRESSION: Moderate in-stent restenosis in the mid left anterior descending coronary artery along with some moderate disease distal to the stent; however, considering FFR being not used above 0.80, it was decided to continue medical therapy. Disease in the circumflex and the right coronary artery also felt to be only moderate. Also, it is to be noted the patient is not very compliant with followup part taking medications. The patient had intervention done in 05/2017 and he is not taking his Plavix. We would continue aggressive medical therapy. He will be on aspirin, Plavix, he was taking lovastatin at home. We will continue the same also taking atenolol at home and will add Imdur 30 mg. We will discharge the patient home once he is stable and followup as an outpatient. Findings were explained to the patient. JOB# [id number] MAURY/ALDAIR
[2017-11-10] MEDS: IMDUR PO SCH (15:30)
[2017-11-10] MEDS: TENORMIN PO SCH (15:30)
== END 2017-11-10 16:30 | disposition home or self-care (01) | DRG 287 ==
LOC: ED 15:14 → 4A 22:29
PROVIDERS: ADMIT Internal Medicine; ATTEND Internal Medicine
PROC: 3E0234Z Introduction of Serum, Toxoid and Vaccine into Muscle, Percutaneous Approach (ICD-10-PCS; 2017-11-09)
PROC: 4A023N7 Measurement of Cardiac Sampling and Pressure, Left Heart, Percutaneous Approach (ICD-10-PCS; principal; 2017-11-10)
PROC: B2111ZZ Fluoroscopy of Multiple Coronary Arteries using Low Osmolar Contrast (ICD-10-PCS; 2017-11-10)
PROC: B2151ZZ Fluoroscopy of Left Heart using Low Osmolar Contrast (ICD-10-PCS; 2017-11-10)
DX: T82.855A Stenosis of coronary artery stent, initial encounter (principal); I25.110 Atherosclerotic heart disease of native coronary artery with unstable angina pectoris; F17.200 Nicotine dependence, unspecified, uncomplicated; I10 Essential (primary) hypertension; E78.5 Hyperlipidemia, unspecified; Y83.8 Other surgical procedures as the cause of abnormal reaction of the patient, or of later complication, without mention of misadventure at the time of the procedure; Z95.5 Presence of coronary angioplasty implant and graft; Z79.899 Other long term (current) drug therapy; I25.2 Old myocardial infarction; Z72.89 Other problems related to lifestyle; Z82.49 Family history of ischemic heart disease and other diseases of the circulatory system; Z23 Encounter for immunization; Z91.19 Patient's noncompliance with other medical treatment and regimen
CPT/HCPCS: 36415; 71010; 78452; 80048; 80061; 82550; 82553; 84484; 85007; 85014; 85018; 85025; 85049; 85520; 85610; 85730; 90686; 93005; 93010; 93017; 93458; 93571; 96374; A9270-GY; A9502; C1769; C1887; C1894; J0153; J1644; J1650; J2250; J2270; J2785; J3010; J7040; Q9967